=== PATIENT | female | born 1930 | race Caucasian/White ===

== ENCOUNTER 2016-08-15 10:43 | Outpatient (CLI) | payer MEDICARE, MEDICAID ==
[2016-08-15 11:53] LABS: Prothrombin Time 19.5 SEC (12.0-14.7)
== END 2016-08-15 10:44 | disposition home or self-care (01) ==
LOC: HPCALD 10:43
PROVIDERS: ATTEND Family Medicine
DX: I48.91 Unspecified atrial fibrillation (principal)
CPT/HCPCS: 36415; 85610

== ENCOUNTER 2016-08-30 11:05 | Outpatient (CLI) | payer MEDICARE, MEDICAID ==
[2016-08-30 11:33] LABS: Prothrombin Time 24.5 SEC (12.0-14.7)
== END 2016-08-30 11:06 | disposition home or self-care (01) ==
LOC: HPCALD 11:05
PROVIDERS: ATTEND Family Medicine
DX: I48.91 Unspecified atrial fibrillation (principal)
CPT/HCPCS: 36415; 85610

== ENCOUNTER 2016-09-29 11:18 | Emergency (ER) | payer MEDICARE, MEDICAID ==
--- NOTE | 2016-09-29 12:21 | CT ---
CT OF THE BRAIN WITHOUT CONTRAST: DATE: 09/29/16. FINDINGS: A noncontrast CT of the brain was done following a fall. The ventricles are normal in size for age with no shift. Patchy deep white matter lucency is seen bilaterally most consistent with chronic mi crovascular ischemia. Small acute strokes would be missed against this background. No intracranial bleeding or extraaxial hematoma was appreciated. There is no sign of mass. There is fluid and/or mucosal thickening in the right maxillary sinus. There appears to be a fractu re through the sinus. See CT of the face to follow. IMPRESSION: 1. Chronic ischemic changes, but no acute intracranial findings. 2. Traumatic changes to the right maxillary sinus. See CT of the face to follow. POS: HOME
--- NOTE | 2016-09-29 12:23 | CT ---
CT OF THE FACIAL BONES: DATE: 09/29/16. FINDINGS: Spiral CT of the face was performed for evaluation following trauma. Axial slices were acquired, th en coronal and sagittal reconstructions were done. There is a depressed fracture of the anterior wall of the right maxillary sinus with a significant a mount of bleeding in the sinus. There is also a minimally displaced fracture of the lateral wall of the sinus. Also, I see a fracture through the superior medial right orbital rim without clear exte nsion into the orbit itself. A small amount of soft tissue air is seen just lateral to the right ma xillary sinus. None is seen within the orbit. The medial wall appears intact and the ethmoid sinus es are clear. The zygomatic arches and nasal bones are intact. IMPRESSION: Fractures of the anterior and lateral [place] of the right maxillary sinus, as well as the superior ri ght orbital rim medially. POS: HOME
--- NOTE | 2016-09-29 12:41 | CT ---
CT OF THE CERVICAL SPINE WITHOUT CONTRAST: DATE: 09/29/16. FINDINGS: Spiral CT of the cervical spine was done following trauma. Axial slices were acquired, then coronal and sagittal reconstructions were done. No fracture, dislocation, or acute bony change was seen. The C1 to dens distance is normal and the soft tissues are normal in thickness. Numerous degenerative changes are present in the spine. Disk space narrowing is prominent at C4-5 and C5-C6. Findings by level follow: C1-2: No acute findings. C2-C3: No acute findings. C3-C4: Prominent facet arthritis bilaterally, left greater than right. Moderate to severe left for aminal narrowing. C4-C5: bilateral facet arthritis worse on the right side. Mild amounts of posterior osteophyte sli ghtly effaces the thecal sac, but there is no true spinal stenosis. C5-C6: A right posterior osteophyte effaces the thecal sac and does narrow the lateral recess on th e right side. The foramina seen is still patent. The AP diameter of the canal at this level is 9-1 0 mm with it being a little narrower in the right lateral recess. C6-C7: There is moderate left foraminal stenosis due to osteophytes. C7-T1: No acute findings. T1-T2: No acute findings. Lung apices are clear and show no pneumothorax. IMPRESSION: Scattered degenerative changes as noted, but no acute traumatic findings. POS: HOME
[2016-09-29 12:43] LABS: Prothrombin Time 14.5 SEC (12.0-14.7)
[2016-09-29 12:52] LABS: ALT (SGPT) 23 U/L (0-55); AST (SGOT) 37 U/L (5-34); Alkaline Phosphatase 58 U/L (40-150); Anion Gap 14 mmol/L (10-20); BUN (Urea Nitrogen) 16 mg/dL (9.8-20.1); Bilirubin, Total 0.7 mg/dL (0.2-1.2); Calc. Creatinine Clearance 0 mL/min (70-130); Calcium 9.2 mg/dL (7.8-10.44); Carbon Dioxide 27 mmol/L (23-31); Chloride 103 mmol/L (98-107); Estimated GFR-MDRD 57; Globulin 2.7 g/dL (2.4-3.5); Protein, Total 6.7 g/dL (5.8-8.1)
[2016-09-29 12:54] LABS: Troponin I Less than 0.010 ng/mL (< 0.028)
[2016-09-29 13:04] LABS: Bilirubin Negative (Negative); Blood, Urine Trace (Negative); Glucose, Urine (Dipstick) Negative (Negative); Ketone, Urine Negative (Negative); Nitrite Negative (Negative); Protein, Urine (Dipstick) Negative (Neg-Trace); Urobilinogen 0.2 mg/dL (0.2-1.0)
[2016-09-29 13:08] LABS: Hematocrit 41.5 % (36.0-47.0); Mean Platelet Volume 6.1 fL (7.4-10.4); Neutrophil 70 % (42-75); Red Blood Cell (RBC) Count 4.55 mill/uL (4.20-5.40)
[2016-09-29 13:10] LABS: Bacteria/HPF None Seen HPF (None Seen); Hyaline Casts/LPF NONE SEEN LPF (0-3 Hyaline); Oval Fat Bodies/HPF None Seen HPF (None Seen); RBC/HPF 0-3 HPF (0-3); Renal Epithelial None Seen HPF (0-3); Sperm/HPF None Seen HPF (None Seen); Squamous Epithelial None Seen HPF (0-3); Transitional Epithelial NONE SEEN HPF (0-3); Trichomonas/HPF None Seen HPF (None Seen); WBC/HPF None Seen HPF (0-3); Yeast-All Forms None Seen HPF (None Seen)
[2016-09-29] MEDS ORDERED: Lidocaine 1% 20 ML MDV ONE (14:48)
[2016-09-29] MEDS ORDERED: Triple Antibiotic Oint 1 GM Packet ONE (15:13)
[2016-09-29] MEDS ORDERED: Acetaminophen 325 MG TAB ONE (15:26)
--- NOTE | 2016-09-29 15:37 | RAD ---
LEFT WRIST THREE VIEWS 09/29/16 No acute fracture was appreciated. There are severe degenerative changes in the first carpometacarpa l joint and it is likely that there was a prior fracture at the base of the first metacarpal. The re lationship between the trapezium, trapezoid, and first and second metacarpals is abnormal, and the t rapezium is quite fragmented. The distal pole of the scaphoid is affected by degenerative change bet ween it and the distal row of carpals. No acute fracture was seen. The distal radius and ulna appear intact. Some calcification of the triangular fibrocartilage is suggested. IMPRESSION: Severe degenerative changes, as well as probable old trauma. No acute findings. POS: HOME
--- NOTE | 2016-09-29 15:41 | RAD ---
RIGHT RIBS WITH PA CHEST: DATE: 09/29/16. FINDINGS: A PA film of the chest shows the heart to be upper normal in size, but there is no congestive change or pleural effusion. The lungs are fully inflated and clear. No infiltrate, effusion, or pneumoth orax was seen. The mediastinum shows no widening or shift. The trachea only deviates slightly to t he right as it crosses the aorta. Films of the ribs show relatively nondisplaced fractures near the distal ends of the right 8th and 9 th ribs. IMPRESSION: Fractures of the distal ends of the 8th and 9th ribs. POS: HOME
--- NOTE | 2016-09-29 15:41 | RAD ---
RIGHT WRIST THREE VIEWS 09/29/16 There is severe degenerative change between the distal pole of the scaphoid and the distal row of ca rpals. There may have even been old trauma here. There is an abnormal relationship between the proxi mal and distal rows of carpals. 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 This may not be acute. I do not see any obvious acute fractur e. Faint calcification of the triangular fibrocartilage is present. IMPRESSION: Abnormal carpal relations with an anterior dislocation of the lunate, increased scapholunate space a nd sclerosis of the lunate itself. This is more likely a longstanding consequence of prior trauma th an acute. It is difficult to assess the distal pole of the scaphoid, though this all appears old as well. Code T POS: HOME
== END 2016-09-29 15:46 | disposition home or self-care (01) ==
LOC: BURERS 11:18
DX: S02.81XA Fracture of other specified skull and facial bones, right side, initial encounter for closed fracture (principal); S22.41XA Multiple fractures of ribs, right side, initial encounter for closed fracture; S01.01XA Laceration without foreign body of scalp, initial encounter; I25.10 Atherosclerotic heart disease of native coronary artery without angina pectoris; F03.90 Unspecified dementia, unspecified severity, without behavioral disturbance, psychotic disturbance, mood disturbance, and anxiety; Z86.711 Personal history of pulmonary embolism; Z79.82 Long term (current) use of aspirin; Z79.891 Long term (current) use of opiate analgesic; Z79.01 Long term (current) use of anticoagulants; Z79.899 Other long term (current) drug therapy; W17.89XA Other fall from one level to another, initial encounter
CPT/HCPCS: 12011; 70450; 70486; 72125; 80053; 81003; 81015; 82553; 84484; 85025; 85610; 85730; 93005; 94760; J2001

== ENCOUNTER 2016-11-28 14:18 | Emergency (ER) | payer MEDICARE, MEDICAID ==
[2016-11-28 15:05] LABS: INR-International Normal Ratio 1.1
[2016-11-28 15:17] LABS: ALT (SGPT) 17 U/L (0-55); AST (SGOT) 20 U/L (5-34); Albumin 3.8 g/dL (3.4-4.8); Alkaline Phosphatase 52 U/L (40-150); Anion Gap 12 mmol/L (10-20); BUN (Urea Nitrogen) 20 mg/dL (9.8-20.1); Bilirubin, Total 0.7 mg/dL (0.2-1.2); CKMB 1.3 ng/mL (0-6.6); Calc. Creatinine Clearance 0 mL/min (70-130); Calcium 8.9 mg/dL (7.8-10.44); Carbon Dioxide 28 mmol/L (23-31); Chloride 104 mmol/L (98-107); Estimated GFR-MDRD 58; Globulin 2.4 g/dL (2.4-3.5); Glucose 88 mg/dL (83-110); Potassium 3.5 mmol/L (3.5-5.1); Protein, Total 6.2 g/dL (5.8-8.1); Sodium 140 mmol/L (136-145); Troponin I Less than 0.010 ng/mL (< 0.028)
[2016-11-28 15:24] LABS: Eosinophils 2 % (0-10); Hemoglobin 12.4 g/dL (12.0-16.0); Lymphocytes 27 % (21-51); MDiff Complete? YES; Mean Corpuscular Volume 93.8 fl (81.0-99.0); Mean Platelet Volume 7.3 fL (7.4-10.4); Monocytes 4 % (0-10); Neutrophil 67 % (42-75); Platelet Count 187 thou/uL (130-400); RBC Distribution Width 12.1 % (11.5-14.5); White Blood Cell (WBC) Count 7.5 thou/uL (4.8-10.8)
--- NOTE | 2016-11-28 18:26 | CT ---
CT BRAIN WITHOUT CONTRAST 11/28/16 Comparison is made with a 09/29/16 study. Patchy low density areas are seen throughout the deep white matter most consistent with chronic isch emic change. The overall appearance is not substantially different than the September scan. Small acu te strokes would be missed against this ischemic background. There were no areas strongly suspicious ly for an acute stroke, but an MRI would be needed to be certain. There is no bleeding, mass or laci a. The calvarium appears intact. The ventricles are normal in size. IMPRESSION: Chronic ischemic changes as noted above. PRELIMINARY REPORT CALLED TO DR DIA @ [id number]. POS: HOME
== END 2016-11-28 15:10 | disposition short-term general hospital (02) ==
LOC: BURERS 14:18
DX: I63.9 Cerebral infarction, unspecified (principal); I25.10 Atherosclerotic heart disease of native coronary artery without angina pectoris; F03.90 Unspecified dementia, unspecified severity, without behavioral disturbance, psychotic disturbance, mood disturbance, and anxiety; Z86.711 Personal history of pulmonary embolism; Z79.01 Long term (current) use of anticoagulants; Z79.82 Long term (current) use of aspirin; Z79.899 Other long term (current) drug therapy
CPT/HCPCS: 36416; 70450; 80053; 82553; 84443; 84484; 85025; 85610; 93005

== ENCOUNTER 2017-02-21 11:54 | Outpatient (CLI) | payer MEDICARE, MEDICAID ==
[2017-02-21 12:25] LABS: INR-International Normal Ratio 1.1; Prothrombin Time 14.3 SEC (12.0-14.7)
== END 2017-02-21 11:55 | disposition home or self-care (01) ==
LOC: HPCALD 11:54
PROVIDERS: ATTEND Family Medicine
DX: I48.91 Unspecified atrial fibrillation (principal)
CPT/HCPCS: 36415; 85610

== ENCOUNTER 2017-05-08 08:03 | Outpatient (CLI) | payer MEDICARE, MEDICAID ==
[2017-05-08 08:30] LABS: Bilirubin Small (Negative); Blood, Urine Trace (Negative); Clarity Turbid (Clear); Glucose, Urine (Dipstick) Negative (Negative); Leukocyte Large (Negative); Nitrite Negative (Negative); Protein, Urine (Dipstick) 30 mg/dL (Neg-Trace); Specific Gravity, Urine 1.025 (1.005-1.030); pH, Urine 5.5 (5.0-9.0)
== END 2017-05-08 08:04 | disposition home or self-care (01) ==
LOC: BURMANOR 08:03
PROVIDERS: ATTEND Clinical Nurse Specialist Medical-Surgical
DX: Z87.440 Personal history of urinary (tract) infections (principal)
CPT/HCPCS: 81003; 87077; 87086; 87186